=== PATIENT | female | born 1995 | race Hispanic/Latino ===

== ENCOUNTER 2022-07-20 16:33 | Emergency (ER) | payer SELFPAY | END 2022-07-20 17:28 | disposition home or self-care (01) | LOC: ERS 16:33 | DX: J03.80 Acute tonsillitis due to other specified organisms (principal) | CPT/HCPCS: 99283 ==

== ENCOUNTER 2023-06-21 12:14 | Emergency (ER) | payer OTHER, SELFPAY | END 2023-06-21 15:13 | disposition home or self-care (01) | LOC: ERS 12:14 | DX: O99.891 Other specified diseases and conditions complicating pregnancy (principal); J02.9 Acute pharyngitis, unspecified; R09.81 Nasal congestion; Z3A.16 16 weeks gestation of pregnancy | CPT/HCPCS: 87081; 87430; 99283 ==